=== PATIENT | male | born 1965 | race Caucasian/White ===

== ENCOUNTER → 2017-06-03 | Outpatient (CLI) | payer MEDICARE ==
[~2017-06-03] MED LIST: FENTANYL CITRATE/PF 100MCG/2 ML INJ ONE; MIDAZOLAM HCL 2 MG/2 ML VIAL ONE; SODIUM CHLORIDE 0.9% 250ML 500 ML ONE
--- NOTE | 2017-06-03 14:54 | Diagnostic Imaging Report ---
Exam: Brain MRI without IV contrast History: History of brain tumor Comparison studies: MRI brain 04/10/2016 Technique: Sagittal T2; axial DWI, FLAIR, MPGR, T1, Coronal FLAIR. Postcontrast multiplanar T1-weighted images. Intravenous contrast: 20 cc of MultiHance Findings: Scalp and bone marrow: Changes of previous right parietotemporal craniotomy. Brain volume: Severe right more than left supratentorial volume loss, stable. Ventricles: Exvacuodilatation of the bilateral right more than left lateral ventricles, stable Parenchyma: Again seen is extensive encephalomalacia of the right cerebral hemisphere, with associated Wallerian degeneration along the right cerebral peduncle. Severe volume loss of the corpus callosum. Chronic small left striatocapsular lacunar infarcts. Confluent T2 FLAIR hyperintensity in the deep periventricular white matter are nonspecific. No abnormal enhancement Suprasellar region: No abnormalities. Craniocervical junction: Patent foramen magnum. No Chiari malformation. Vessels: Maintained flow-voids. Incidental findings: Nonspecific mucosal thickening in the left greater than right maxillary sinus. IMPRESSION: 1. Extensive encephalomalacia and gliosis in the right supratentorial hemisphere with associated Wallerian degeneration along the right cortical spinal tract, stable. 2. Chronic left striatocapsular lacunar infarcts. 3. Stable confluent T2/FLAIR hyperintensities of the supratentorial white matter, this could be seen in the carotids are ischemic changes and other leukoencephalopathies. 4. Old right parietotemporal craniotomy. 5. No enhancing lesion to suggest residual or recurrent tumor . Signed by: DR Ravinder Cooper M.D. on 06/03/2017 2:50 PM
== END ==
LOC: MRI 11:03
PROVIDERS: ATTEND Psychiatry & Neurology Clinical Neurophysiology
DX: D49.6 Neoplasm of unspecified behavior of brain (principal)
CPT/HCPCS: 36415; 70553; 82948; J2250; J7050